=== PATIENT | male | born 1960 | race Caucasian/White ===

== ENCOUNTER → 2016-12-05 | Outpatient (CLI) | payer OTHER ==
[~2016-12-05] MED LIST: GADOBUTROL 10 ML VIAL IVP ONE
== END ==
LOC: FIMAGING 15:03
PROVIDERS: ATTEND Physician Assistant
DX: D18.02 Hemangioma of intracranial structures (principal)
CPT/HCPCS: A9585

== ENCOUNTER 2017-05-25 14:07 | Emergency (ER) | payer OTHER ==
[2017-05-25 14:25] VITALS: RESP 14; TEMP 97.5
[2017-05-25] MEDS ORDERED: LET GEL TOPICAL 1 EA SYR TP ONE ×2 (14:33→15:49)
[2017-05-25] MEDS ORDERED: HYDROCODONE/APAP 5/325 TAB PO ONE (15:43)
[2017-05-25] MEDS ORDERED: IBUPROFEN 600 MG TAB PO ONE (15:43)
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
[2017-05-25 16:17] VITALS: BP 154/93; PULSE 63; O2SAT 98
== END 2017-05-25 17:37 | disposition home or self-care (01) ==
DX: S42.032A Displaced fracture of lateral end of left clavicle, initial encounter for closed fracture (principal); S52.125A Nondisplaced fracture of head of left radius, initial encounter for closed fracture; S20.412A Abrasion of left back wall of thorax, initial encounter; S40.212A Abrasion of left shoulder, initial encounter; S50.311A Abrasion of right elbow, initial encounter; S50.312A Abrasion of left elbow, initial encounter; S80.811A Abrasion, right lower leg, initial encounter; Z87.891 Personal history of nicotine dependence; V18.4XXA Pedal cycle driver injured in noncollision transport accident in traffic accident, initial encounter; Y92.410 Unspecified street and highway as the place of occurrence of the external cause; Y99.8 Other external cause status; Y93.55 Activity, bike riding
CPT/HCPCS: A4565; L3807

== ENCOUNTER → 2017-05-31 | Outpatient (CLI) | payer OTHER | LOC: FIMAGING 16:40 | DX: M79.89 Other specified soft tissue disorders (principal) ==

== ENCOUNTER 2017-06-22 19:54 | Emergency (ER) | payer OTHER ==
[2017-06-22 19:59] VITALS: BP 136/86; PULSE 60; RESP 16; TEMP 98.1; O2SAT 97
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
== END 2017-06-22 20:50 | disposition home or self-care (01) ==
DX: S80.811A Abrasion, right lower leg, initial encounter (principal); S50.811A Abrasion of right forearm, initial encounter; Z87.891 Personal history of nicotine dependence; V19.9XXA Pedal cyclist (driver) (passenger) injured in unspecified traffic accident, initial encounter; Y92.410 Unspecified street and highway as the place of occurrence of the external cause; Y99.8 Other external cause status

== ENCOUNTER → 2018-03-20 | Outpatient (CLI) | payer OTHER | LOC: FIMAGING 13:01 | PROVIDERS: ATTEND Family Medicine | DX: R10.13 Epigastric pain (principal) ==